=== PATIENT | male | born 1960 | race Two or more races ===

== ENCOUNTER 2024-09-10 09:32 | Outpatient (RCR) | payer MEDICAID, SELFPAY | END 2024-09-30 23:59 | disposition home or self-care (01) | LOC: CPTX 09:32 | PROVIDERS: PCP Student in an Organized Health Care Education/Training Program; Referring Provider Student in an Organized Health Care Education/Training Program; Visit Provider Student in an Organized Health Care Education/Training Program | DX: Z53.8 Procedure and treatment not carried out for other reasons (principal) ==

== ENCOUNTER 2025-03-19 14:01 | Emergency (ER) | payer MEDICAID, SELFPAY ==
[2025-03-19 14:11] VITALS: BP 129/87; PULSE 95; RESP 18; TEMP 37.2; O2SAT 98; BMI 24.7
--- NOTE | 2025-03-19 14:19 | XR_ITS ---
Examination: PA lateral chest 2 views TECHNIQUE: Upright PA lateral chest 2 views Date and time: March 19, 2025 1439 hours INDICATIONS: Chest pain today. FINDINGS: Normal heart size No pneumonia or pulmonary edema Moderate thoracic spondylosis IMPRESSION: No active disease
--- NOTE | 2025-03-19 14:19 | EKG_ITS ---
[facility] Test Date: 2025-03-19 Pat Name: KATIUSKA FRANCISCO Department: Room: - Gender: Male Senior Financial Accountant: : 1960 Requested By: Kelvin Esteban Order Number: [id number] Reading MD: Kelvin Esteban Measurements Intervals [place] Rate: 96 P: 13 IN: 161 QRS: 2 QRSD: 95 T: 20 QT: 338 QTc: 428 Interpretive Statements SINUS RHYTHM No previous ECG available for comparison /store/S0/[id number]/ecg/[id number].pdf
--- NOTE | 2025-03-19 14:27 | PD.EDNV ---
Nausea/Vomit./Diarrhea-RME/HPI General Chief complaint: Nausea/Vomiting/Diarrhea Stated complaint: Diabetic, nausea, weak, tired Time Seen by Provider: 03/19/25 14:15 Arrival date/time: 03/19/25 14:01 Limitations: language barrier RME / HPI RME / HPI Narrative: 64-year-old male with poorly controlled diabetes presents for evaluation of decreased appetite x 4 days. Patient endorses fatigue, weakness, nausea without emesis. He denies chest pain, shortness of breath, loose stools, headache, visual changes, hematemesis, abdominal pain, fever, chills. Patient reports he is on 2 oral medications for diabetes for which she has been compliant. He reports that his home glucose checks have been high but cannot recall value. He endorses subjective weight loss. Denies known sick contacts, recent travel, recent antibiotic use. Related Data Home Medications ?Medication ?Instructions ?Recorded ?Confirmed metformin 1,000 mg tablet 1,000 mg PO QDAY 08/25/18 08/25/18 Previous Rx's ?Medication ?Instructions ?Recorded glipizide 5 mg tablet 5 mg PO ACBR #30 tabs 12/10/14 docusate sodium 100 mg capsule 100 mg PO QDAY #30 caps 08/26/18 (Colace) omeprazole 20 mg capsule,delayed 20 mg PO QDAY #30 caps 08/26/18 release Allergies Allergy/AdvReac Type Severity Reaction Status Date / Time No Known Allergies Allergy Verified 03/19/25 14:06 ED Exam General Limitations: Present language barrier General appearance: Present alert and in no apparent distress Head Head exam: Present atraumatic and normocephalic Eye Eye exam: Present normal appearance, PERRL and EOMI; Absent scleral icterus ENT ENT exam: Present normal exam, normal oropharynx and mucous membranes moist Neck Neck exam: Present normal inspection and full ROM Chest Chest inspection: Present normal inspection and symmetric chest wall rise Respiratory Respiratory exam: Present normal lung sounds bilaterally; Absent respiratory distress or wheezes Cardiovascular Cardiovascular exam: Present regular rate and +S1 Abdominal Exam Abdominal exam: Present soft and normal bowel sounds; Absent distention, tenderness, guarding, rebound or rigidity Back Exam Back exam: Present normal inspection and full ROM Neurological Exam Neurological exam: Present alert and normal gait Psychiatric Psychiatric exam: Present normal affect Skin Skin exam: Present warm, dry, intact and normal color Course Quality Measures none Orders Category Date Time Status EKG (ED ONLY) *Do not use* NOW Care 03/19/25 14:19 Completed Insert [Insert IV] NOW Care 03/19/25 15:38 Active EKG (ED Only) Stat Exams 03/19/25 14:19 Draft XR chest 2V Stat Exams 03/19/25 14:19 Completed B-Type Natriuretic Peptide Stat Lab 03/19/25 14:33 Completed CBC Stat Lab 03/19/25 14:33 Completed Comprehensive Metabolic Panel Stat Lab 03/19/25 14:33 Completed Drug Screen,Urine Stat Lab 03/19/25 15:08 Received LDH (Lactate Dehydrogenase) Stat Lab 03/19/25 14:33 Completed Lipase Stat Lab 03/19/25 15:38 Ordered Magnesium Stat Lab 03/19/25 14:33 Completed Partial Thromboplastin Time Stat Lab 03/19/25 14:33 Completed Prothrombin Time with INR Stat Lab 03/19/25 14:33 Completed Troponin I Stat Lab 03/19/25 14:33 Completed Urinalysis Stat Lab 03/19/25 15:08 Received Sodium Chloride 0.9% 1000 ml [Ns] 1,000 ml Med 03/19/25 15:37 Active IV 999 mls/hr Vital Signs Vital signs: Vital Signs Temperature 99 F 03/19/25 14:11 Pulse Rate 95 03/19/25 14:11 Respiratory Rate 18 03/19/25 14:11 Blood Pressure 129/87 H 03/19/25 14:11 Pulse Oximetry (%) 98 03/19/25 14:11 Oxygen Delivery Method Room Air 03/19/25 14:11 Pulse ox 98% on room air, within normal limits. Nausea/Vomiting/Diarrhea Medications / Prescriptions Medication administrations:: Medication Administration History Sodium Chloride (Ns) 1,000 mls @ 999 mls/hr IV .Q1H1M ONE Stop: 03/19/25 16:37 Discharge Plan Prescriptions/Referrals Prescriptions/Med Rec: No Action glipizide 5 MG tablet 5 mg PO ACBR Qty: 30 0RF metformin 1,000 mg Tablet 1,000 mg PO QDAY docusate sodium [Colace] 100 mg capsule 100 mg PO QDAY Qty: 30 0RF omeprazole 20 mg capsule,delayed release(DR/EC) 20 mg PO QDAY Qty: 30 0RF Referrals: Quiana Jane [Primary Care Provider] - In 1 week Patient/Caregiver Discharge Instructions Print Language: Afghan
[2025-03-19 14:47] LABS: Basophils % (Auto) 1 % (0-2.5); Eosinophils % (Auto) 0 % (0-10); Hematocrit 42.6 % (41.0-53.0); Hemoglobin 14.8 g/dL (13.5-16.0); Immature Granulocytes % (Auto) 1 % (0-0); Immature Granulocytes Auto 0.04 Thou/mm3 (0.00-0.00); Lymphocytes # (Auto) 1.2 Thou/mm3 (1.0-4.8); Lymphocytes % (Auto) 15 % (10-50); Mean Corpuscular HGB Conc 34.7 g/dl (31.0-37.0); Mean Corpuscular Volume 89 fL (80-100); Monocytes # (Auto) 0.7 Thou/mm3 (0.0-0.8); Monocytes % (Auto) 9 % (0-12); Neutrophils # (Auto) 5.7 Thou/mm3 (1.8-7.7); Neutrophils % (Auto) 75 % (37-80); Nucleated Red Blood Cell % 0 /100 WBC (0); Platelet Count 108 Thou/mm3 (140-440); RDW Standard Deviation 43.4 fL (35.1-43.9); Red Blood Count 4.77 Miln/mm3 (4.50-5.90); White Blood Count 7.6 Thou/mm3 (3.8-10.6)
[2025-03-19 15:00] LABS: Prothrombin Time 10.9 Seconds (9.0-12.2)
[2025-03-19 15:13] LABS: B-Type Natriuretic Peptide 51 pg/mL (0-100)
[2025-03-19 15:19] LABS: Alanine Aminotransferase 12 U/L (10-49); Albumin, Serum 4.4 gm/dL (3.4-4.8); Albumin/Globulin Ratio 1.3 (1.2-2.2); Alkaline Phosphatase 125 U/L (46-116); Anion Gap 14 (7-16); Aspartate Amino Transferase 11 U/L (0-34); BUN/Creatinine Ratio 12 Ratio (12-20); Bilirubin,Total 0.6 mg/dL (0.3-1.2); Blood Urea Nitrogen 15 mg/dL (9-23); Calcium 9.5 mg/dL (8.3-10.6); Calcium (Corrected) 9.5 mg/dL (8.5-10.1); Carbon Dioxide 22.5 mMol/L (20.0-31.0); Chloride 97 mMol/L (98-107); Creatinine (Component) 1.3 mg/dL (0.6-1.3); Estimated Creatinine Clearance 49.3 mL/min (>60); Globulin 3.3 gm/dL (2.3-3.5); LDH (Lactate Dehydrogenase) 131 U/L (120-246); Osmolality,Calculated 285 (275-295); Potassium 4.1 mMol/L (3.4-5.1); Sodium 133 mMol/L (136-145); Total Protein 7.7 gm/dL (5.7-8.2); Troponin I < 0.020 ng/mL (0.0-0.045); eGFR > 60 See Note
[2025-03-19 15:22] LABS: Glucose 414 mg/dL (74-106)
[2025-03-19 15:27] LABS: Collection Type, Urine Clean Catch
[2025-03-19 15:36] LABS: Bilirubin,Urine Negative (Negative); Blood,Urine Negative (Negative); Clarity,Urine Clear (Clear/Hazy); Color,Urine Colorless (Lt Yel-Yel); Glucose, Urine 4+ (Negative); Ketones,Urine 2+ (Negative); Leukocyte Esterase,Urine Negative (Negative); Nitrite,Urine Negative (Negative); Protein,Urine Negative (Neg - Trace); RBC,Urine < 1 /hpf (0-3); Specific Gravity,Urine 1.036 (1.001-1.035); Squamous Epithelial Cell,Urine < 1 /hpf (0-5); Urobilinogen,Urine Negative mg/dL (0.0-1.0); WBC,Urine < 1 /hpf (0-5)
[2025-03-19 15:39] LABS: Amphetamine/Methamp Scrn,U Negative (Negative); Barbiturate Screen,Urine Negative (Negative); Benzodiazepines Screen,Urine Negative (Negative); Benzoylecgonine Screen, Ur Negative (Negative); Fentanyl Screen,Urine Negative (Negative); Opiate Screen,Urine Negative (Negative); THC Screen,Urine Negative (Negative)
--- NOTE | 2025-03-19 15:54 | PD.EDRME ---
Rapid Medical Screening Exam E Arrival date/time: 03/19/25 14:01 64-year-old male with poorly controlled diabetes presents for evaluation of decreased appetite x 4 days. Patient endorses fatigue, weakness, nausea without emesis. He denies chest pain, shortness of breath, loose stools, headache, visual changes, hematemesis, abdominal pain, fever, chills. Patient reports he is on 2 oral medications for diabetes for which she has been compliant. He reports that his home glucose checks have been high but cannot recall value. He endorses subjective weight loss. Denies known sick contacts, recent travel, recent antibiotic use. Chief Complaint: Nausea/Vomiting/Diarrhea Time Seen by Provider: 03/19/25 14:15 Vital signs: Vital Signs Temperature 99 F 03/19/25 14:11 Pulse Rate 95 03/19/25 14:11 Respiratory Rate 18 03/19/25 14:11 Blood Pressure 129/87 H 03/19/25 14:11 Pulse Oximetry (%) 98 03/19/25 14:11 Oxygen Delivery Method Room Air 03/19/25 14:11 Vital signs reviewed by provider: Yes [facility] Narrative: 64-year-old male with poorly controlled diabetes presents for evaluation of decreased appetite x 4 days. Patient endorses fatigue, weakness, nausea without emesis. He denies chest pain, shortness of breath, loose stools, headache, visual changes, hematemesis, abdominal pain, fever, chills. Patient reports he is on 2 oral medications for diabetes for which she has been compliant. He reports that his home glucose checks have been high but cannot recall value. He endorses subjective weight loss. Denies known sick contacts, recent travel, recent antibiotic use.
[2025-03-19 16:06] LABS: Base Excess, Venous 0 (-3-3); O2 Saturation, Venous 63 % (96-97); PCO2, Venous 40 mmHg (36-56); PO2, Venous 31 mmHg (15-58)
[2025-03-19 16:29] LABS: Lipase 26 U/L (12-53)
[2025-03-19] MEDS: SODIUM CHLORIDE 0.9% 1000 ML 1,000 ML 999 ML IV (18:20)
--- NOTE | 2025-03-19 19:45 | PD.EDNV ---
Nausea/Vomit./Diarrhea-E/HPI General Chief complaint: Nausea/Vomiting/Diarrhea Stated complaint: Diabetic, nausea, weak, tired Time Seen by Provider: 03/19/25 14:15 Arrival date/time: 03/19/25 14:01 RME / HPI RME / HPI Narrative: 64-year-old male with poorly controlled diabetes presents for evaluation of decreased appetite x 4 days. Patient endorses fatigue, weakness, nausea without emesis. He denies chest pain, shortness of breath, loose stools, headache, visual changes, hematemesis, abdominal pain, fever, chills. Patient reports he is on 2 oral medications for diabetes for which she has been compliant. He reports that his home glucose checks have been high but cannot recall value. He endorses subjective weight loss. Denies known sick contacts, recent travel, recent antibiotic use. Related Data Home Medications ?Medication ?Instructions ?Recorded ?Confirmed metformin 1,000 mg tablet 1,000 mg PO QDAY 08/25/18 08/25/18 Previous Rx's ?Medication ?Instructions ?Recorded glipizide 5 mg tablet 5 mg PO ACBR #30 tabs 12/10/14 docusate sodium 100 mg capsule 100 mg PO QDAY #30 caps 08/26/18 (Colace) omeprazole 20 mg capsule,delayed 20 mg PO QDAY #30 caps 08/26/18 release Allergies Allergy/AdvReac Type Severity Reaction Status Date / Time No Known Allergies Allergy Verified 03/19/25 14:06 Review of Systems Review of Systems Narrative Review of Systems: Review of system reviewed and within normal limits except mentioned in HPI ED Exam Narrative Physical exam: VITAL SIGNS: Reviewed. GENERAL APPEARANCE: Alert and interactive, follows commands, no acute distress, HEAD AND FACE: Non-traumatic. ENT: PERRL, pink conjunctivitis, eyelid no trauma, Mucous membrane moist. NECK: Supple, nontender, no nuchal rigidity. CHEST: No tenderness, no crepitus, no paradoxical movement, no retractions. LUNGS: Clear, well ventilated, symmetric, no rales, no wheezing, no ronchi, no stridor, good breath sounds bilaterally. HEART: Regular rate, regular rhythm, no murmur, no gallops. ABDOMEN: Soft, positive bowel sounds, nondistended, no guarding, nontender, no rebound, no masses, RECTAL: Deferred. GENITAL: Deferred. NEUROLOGICAL: Gross motor function intact sensory function intact, Appropriate for age. MUSCULOSKELETAL: low back nontender, full range of motion. EXTREMITIES: Nontender, full range of motion. SKIN: Color pink, dry, no rash, no lacerations, no abrasions, no contusions. LYMPHATICS: Deferred. Course Quality Measures none Orders Category Date Time Status EKG (ED ONLY) *Do not use* NOW Care 03/19/25 14:19 Completed Insert [Insert IV] NOW Care 03/19/25 15:38 Active EKG (ED Only) Stat Exams 03/19/25 14:19 Draft XR chest 2V Stat Exams 03/19/25 14:19 Completed B-Type Natriuretic Peptide Stat Lab 03/19/25 14:33 Completed CBC Stat Lab 03/19/25 14:33 Completed Comprehensive Metabolic Panel Stat Lab 03/19/25 14:33 Completed Drug Screen,Urine Stat Lab 03/19/25 15:08 Completed LDH (Lactate Dehydrogenase) Stat Lab 03/19/25 14:33 Completed Lipase Stat Lab 03/19/25 15:57 Completed Magnesium Stat Lab 03/19/25 14:33 Completed Partial Thromboplastin Time Stat Lab 03/19/25 14:33 Completed Prothrombin Time with INR Stat Lab 03/19/25 14:33 Completed Troponin I Stat Lab 03/19/25 14:33 Completed Urinalysis Stat Lab 03/19/25 15:08 Completed VBG [Venous Blood Gas] Stat Lab 03/19/25 15:57 Completed Sodium Chloride 0.9% 1000 ml [Ns] 1,000 ml Med 03/19/25 15:37 Discontinued IV 999 mls/hr Vital Signs Vital signs: Vital Signs Temperature 99 F 03/19/25 14:11 Pulse Rate 95 03/19/25 14:11 Respiratory Rate 18 03/19/25 14:11 Blood Pressure 129/87 H 03/19/25 14:11 Pulse Oximetry (%) 98 03/19/25 14:11 Oxygen Delivery Method Room Air 03/19/25 14:11 Nausea/Vomiting/Diarrhea MDM Narrative MDM Narrative:: 64-year-old male with poorly controlled diabetes presents for evaluation of decreased appetite x 4 days. Patient endorses fatigue, weakness, nausea without emesis. He denies chest pain, shortness of breath, loose stools, headache, visual changes, hematemesis, abdominal pain, fever, chills. Patient reports he is on 2 oral medications for diabetes for which she has been compliant. He reports that his home glucose checks have been high but cannot recall value. He endorses subjective weight loss. Denies known sick contacts, recent travel, recent antibiotic use. Patient's workup is significant for a blood sugar of 414 with no sign of diabetic ketoacidosis. The rest of the labs unremarkable. Patient received IV fluids 1 L, repeat blood sugar was noted to be 222. Patient is having no symptoms prior to discharge. Patient appears nontoxic and hemodynamically stable .Decision to discharge the patient. The patient/family was given an opportunity to ask questions and understood their discharge instructions. Discharge instructions specifically included follow up provider and time frame, current and/or new medications and possible side effects, indications for sooner follow up or return to the emergency department, and the expected course of current diagnosis. Patient reports feeling better as well and giving evidence of significant clinical improvement, I believe patient is now a candidate for discharge. Patient data External records reviewed:: None Clinical information provided by:: patient Social determinants that could affect healthcare access:: none Patient has the following chronic illnesses:: Diabetes mellitus hypertension How is presenting disease/condition affected by chronic disease/condition?: uneffected by Evaluation data The following diagnostics were reviewed and interpreted by me:: lab results, radiology exam(s) and EKG tracing(s) Lab and/or radiology exams considered but not ordered:: None Interpretation Summary: EKG as interpreted by showed normal sinus rhythm, ventricular rate of 96 bpm, no ST segment elevation depression noted. Medications / Prescriptions Medications / Prescriptions considered but not ordered:: None Medication administrations:: Medication Administration History Discontinued Medications Sodium Chloride (Ns) 1,000 mls @ 999 mls/hr IV .Q1H1M ONE Stop: 03/19/25 16:37 Last Infusion: 03/19/25 19:38 Dose: Infused Documented By: Admin: 03/19/25 18:20 Dose: 999 mls/hr Documented By: IV fluids Consultations Consultation(s) initiated? (list below): No Diagnosis Nausea Differential Diagnosis: food poisoning, gastroenteritis and dehydration Most likely diagnosis given after review of the tests above:: Hyperglycemia Admission Indicated Admission indicated?: not indicated Admission Request Was there a request for admission?: No Disposition Plan Disposition Plan: Discharge Discharge Attestation Discharge Attestation: The patient and all family members were given an opportunity to ask questions and understood the discharge instructions. Discharge instructions specifically effects, indications for sooner follow up or return to the emergency department, and the expected course of current diagnosis. Patient condition: Stable Discharge Plan Plan Patient Disposition: HOME (Self Care) Discharge Disposition comment: Stable Prescriptions/Referrals Prescriptions/Med Rec: No Action glipizide 5 MG tablet 5 mg PO ACBR Qty: 30 0RF metformin 1,000 mg Tablet 1,000 mg PO QDAY docusate sodium [Colace] 100 mg capsule 100 mg PO QDAY Qty: 30 0RF omeprazole 20 mg capsule,delayed release(DR/EC) 20 mg PO QDAY Qty: 30 0RF Referrals: Quiana Jane [Primary Care Provider] - In 1 week Problem List Clinical Impression: Hyperglycemia Patient/Caregiver Discharge Instructions Discharge Activity: activity as tolerated Education Materials: High Blood Sugar (Hyperglycemia) Additional Instructions: Thank you for the opportunity for serving you today. You are stable for discharged . You are advised to: Follow-up with your PCP in 1 to 2 days Return to ED for worsening of symptoms Increase oral fluids Watch your diet to control your blood sugar also. Print Language: Swiss Stand Alone Forms: Anamika Award Info., Patient Portal Info Letter ALICE/ALINE Supervising Physician ALICE/ALINE Supervising Physician: MD Iván
== END 2025-03-19 20:59 | disposition home or self-care (01) ==
PROVIDERS: Physician Assistant; Emergency Provider Emergency Medicine; PCP Physician Assistant
DX: E11.65 Type 2 diabetes mellitus with hyperglycemia (principal); R07.9 Chest pain, unspecified; I10 Essential (primary) hypertension; Z79.84 Long term (current) use of oral hypoglycemic drugs
CPT/HCPCS: 36415; 71046; 80053; 80307; 81001; 82803; 83615; 83690; 83735; 83880; 84484; 85025; 85610; 85730; 93005; 96360; 99284; J7030